=== PATIENT | female | born 1955 | race Caucasian/White ===

== ENCOUNTER 2017-01-19 11:55 | Emergency (ER) | payer BC ==
[2017-01-19] VITALS (8 sets, daily range): BP systolic 85–113; BP diastolic 50–68; PULSE 62–96; RESP 16–18; O2SAT 98–100
--- NOTE | 2017-01-19 12:03 | PD ---
Physical Exam Date Seen by Provider: January 19, 2017 Time Seen by Provider: 11:59 Narrative 61 YOWF WITH ACCIDENTAL OD. 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 NO NAUSEA UPPER ABD PAIN AND SOMULANT. NO VOMITING. NO SI OR HI. MISTAKEN FOR MEDROL. VS NOTED WAITING FOR BED PLACEMENT Data Data Last Documented VS Vital Signs Date Time Temp Pulse Resp B/P Pulse Ox O2 Delivery O2 Flow Rate FiO2 01/19/17 11:58 68 94/62 98 MDM Medical Record Reviewed: Yes Supervised Visit with JUDAH: Elton Munoz January 19, 2017 12:03
[2017-01-19] MEDS ORDERED: SODIUM CHLOR 0.9% 1000 ML INJ 1,000 ML IV ONE (12:18)
--- NOTE | 2017-01-19 12:27 | PD ---
HPI Chief Complaint: OD/ Ingestion Time Seen by Provider: 12:17 Travel History International Travel<30 days: No Contact w/Intl Traveler<30days: No Traveled to known affect area: No History of Present Illness HPI 61-year-old female presents for evaluation of unintentional overdose. At approximately 11 AM this morning she took 5 tablets of her 4 mg Zanaflex. She mistook them for her Medrol pills. She is currently feeling sleepy. She endorses some abdominal pain which she attributes to recent abdominal surgery 2 months ago. Denies nausea, vomiting. She denies any other coingestions. She has no other complaints. She relays a history of stage II colon cancer which was resected 2 months ago, no chemotherapy or radiation required. She is currently on vacation from [place], returning in 2 days. [facility] Past Medical History Tetanus Vaccination: Unknown Social History Alcohol Use: No Tobacco Use: Yes (quit) Substance Use: No Allergies-Medications (Allergen,Severity, Reaction): Coded Allergies: Ampicillin (Verified Allergy, Unknown, 01/19/17) Cipro (Verified Allergy, Unknown, 01/19/17) Codeine (Verified Allergy, Unknown, 01/19/17) Penicillin (Verified Allergy, Unknown, 01/19/17) Reported Meds & Prescriptions Reported Meds & Active Scripts Active Reported Lortab (Hydrocodone-Acetaminophen) 5-325 Mg Tab 1 Tab PO Q6H PRN Flonase Nasal Dawson (Fluticasone Nasal Dawson) 50 Mcg/Act Dawson 2 Dawson EACH NARE DAILY Medrol Dosepak (Methylprednisolone) 4 Mg Dspk 4 Mg PO DIRECTED Per Pharmacist direction Tizanidine (Tizanidine HCl) 4 Mg Tab 4 Mg PO HS Losartan (Losartan Potassium) 50 Mg Tab 50 Mg PO DAILY Review of Systems Except as stated in HPI: all other systems reviewed are Neg Physical Exam Narrative GENERAL: Well-developed well-nourished female who is somnolent on initial examination, arousable to voice and responds to commands. SKIN: Warm and dry. HEAD: Atraumatic. Normocephalic. EYES: Pupils equal and round. No scleral icterus. No injection or drainage. ENT: No nasal bleeding or discharge. Mucous membranes pink and moist. NECK: Trachea midline. No JVD. CARDIOVASCULAR: Regular rate and rhythm. No murmur appreciated. RESPIRATORY: No accessory muscle use. Clear to auscultation. Breath sounds equal bilaterally. GASTROINTESTINAL: Abdomen soft, mild epigastric tenderness without guarding. Well healing Surgical wound noted across the abdomen. MUSCULOSKELETAL: No obvious deformities. No clubbing. No cyanosis. No edema. NEUROLOGICAL: Awake and alert. No obvious cranial nerve deficits. Motor grossly within normal limits. Normal speech. PSYCHIATRIC: Appropriate mood and affect; insight and judgment normal. Data Data Last Documented VS Vital Signs Date Time Temp Pulse Resp B/P Pulse Ox O2 Delivery O2 Flow Rate FiO2 01/19/17 14:00 65 16 97/60 01/19/17 12:50 99 Room Air Orders Electrocardiogram (01/19/17 ) Complete Blood Count With Diff (01/19/17 12:18) Prothrombin Time / Inr (Pt) (01/19/17 12:18) Act Partial Throm Time (Ptt) (01/19/17 12:18) Blood Glucose (01/19/17 12:18) Iv Access Insert/Monitor (01/19/17 12:18) Ecg Monitoring (01/19/17 12:18) Oximetry (01/19/17 12:18) Sodium Chloride 0.9% Flush (Ns Flush) (01/19/17 12:30) Sodium Chlor 0.9% 1000 Ml Inj (Ns 1000 M (01/19/17 12:18) Drug Screen, Random Urine (01/19/17 12:18) Salicylates (Aspirin) (01/19/17 12:18) Lipase (01/19/17 12:25) Sodium Chlor 0.9% 1000 Ml Inj (Ns 1000 M (01/19/17 12:36) Tylenol (Acetaminophen) (01/19/17 12:30) Alcohol (Ethanol) (01/19/17 12:30) Comprehensive Metabolic Panel (01/19/17 12:30) Labs Laboratory Tests Test 01/19/17 01/19/17 12:30 12:50 White Blood Count 7.2 TH/MM3 Red Blood Count 3.72 MIL/MM3 Hemoglobin 8.3 GM/DL Hematocrit 26.3 % Mean Corpuscular Volume 70.8 FL Mean Corpuscular Hemoglobin 22.4 PG Mean Corpuscular Hemoglobin 31.7 % Concent Red Cell Distribution Width 19.9 % Platelet Count 331 TH/MM3 Mean Platelet Volume 7.7 FL Neutrophils (%) (Auto) 43.7 % Lymphocytes (%) (Auto) 44.9 % Monocytes (%) (Auto) 8.7 % Eosinophils (%) (Auto) 1.9 % Basophils (%) (Auto) 0.8 % Neutrophils # (Auto) 3.2 TH/MM3 Lymphocytes # (Auto) 3.2 TH/MM3 Monocytes # (Auto) 0.6 TH/MM3 Eosinophils # (Auto) 0.1 TH/MM3 Basophils # (Auto) 0.1 TH/MM3 CBC Comment DIFF FINAL Differential Comment Prothrombin Time 10.4 SEC Prothromb Time International 0.9 RATIO Ratio Activated Partial 24.0 SEC Thromboplast Time Sodium Level 141 MEQ/L Potassium Level 3.6 MEQ/L Chloride Level 105 MEQ/L Carbon Dioxide Level 29.5 MEQ/L Anion Gap 7 MEQ/L Blood Urea Nitrogen 13 MG/DL Creatinine 0.72 MG/DL Estimat Glomerular Filtration 82 ML/MIN Rate Random Glucose 199 MG/DL Calcium Level 8.4 MG/DL Total Bilirubin 0.1 MG/DL Aspartate Amino Transf 11 U/L (AST/SGOT) Alanine Aminotransferase 20 U/L (ALT/SGPT) Alkaline Phosphatase 82 U/L Total Protein 5.9 GM/DL Albumin 3.2 GM/DL Lipase 219 U/L Salicylates Level LESS THAN 1.7 MG/DL Acetaminophen Level LESS THAN 2.0 MCG/ML Ethyl Alcohol Level LESS THAN 3 MG/DL Urine Opiates Screen NEG Urine Barbiturates Screen NEG Urine Amphetamines Screen NEG Urine Benzodiazepines Screen POS Urine Cocaine Screen NEG Urine Cannabinoids Screen NEG MDM Medical Decision Making Medical Screen Exam Complete: Yes Emergency Medical Condition: Yes Medical Record Reviewed: Yes Interpretation(s) EKG sinus rhythm rate 65 normal intervals Hemoglobin 8.3 Positive for benzodiazepines Differential Diagnosis Zanaflex overdose, hypotension, bradycardia Narrative Course I discussed the case with the [facility] who recommends observing the patient, supportive care, IV fluids. If hypotension and bradycardia worsens injury with dopamine, atropine. Basic lab work, 12-lead EKG, ECG monitoring and ordered. 2 L of IV fluids have been ordered. The patient's lab work has been reviewed. She does have a hemoglobin of 8.3 with no symptoms to suggest acute anemia. Discussed with the patient he will be following up with her primary care physician in [place] when she returns in a few days. 1515: The patient has been reevaluated several times during her hospital stay. Most recently the patient is feeling significantly improved, she is much more awake. She will be provided oral hydration. Her heart rate is in the low 80s and her systolic blood pressure is 113. The patient will be provided a copy of all of her lab work upon discharge. Procedures EKG Prior to Arrival: Yes Diagnosis Primary Impression: Overdose Qualified Code: T50.901A - Overdose, accidental or unintentional, initial encounter Additional Instructions: As discussed, follow-up closely with primary care physician to discuss low hemoglobin level. Return for any emergent medical conditions. Med/Other Pt SpecificInfo: No Change to Meds Disposition: 01 DISCHARGE HOME Condition: Stable Iván Mercado January 19, 2017 12:27 Iván Mercado January 19, 2017 12:27
[2017-01-19] MEDS ORDERED: SODIUM CHLORIDE 0.9% FLUSH 10 ML FLUSH IVF PRN (12:30)
[2017-01-19] MEDS ORDERED: SODIUM CHLOR 0.9% 1000 ML INJ 1,000 ML IV SCH (12:36)
[2017-01-19 12:52] LABS: AUTOMATED NEUTROPHIL # 3.2 TH/MM3 (1.8-7.7); BASOPHIL # 0.1 TH/MM3 (0-0.2); BASOPHIL % 0.8 % (0.0-2.0); EOSINOPHIL # 0.1 TH/MM3 (0-0.4); EOSINOPHIL % 1.9 % (0.0-4.0); HEMATOCRIT 26.3 % (35.0-46.0); HEMO FLAGS DIFF FINAL; LYMPH % 44.9 % (9.0-44.0); LYMPHOCYTE # 3.2 TH/MM3 (1.0-4.8); MEAN CELL VOLUME 70.8 FL (80.0-100.0); MEAN CORPUSCULAR HEMOGLOBIN 22.4 PG (27.0-34.0); MEAN CORPUSCULAR HGB CONC 31.7 % (32.0-36.0); MONO % 8.7 % (0.0-8.0); NEUT % 43.7 % (16.0-70.0); PLATELET COUNT 331 TH/MM3 (150-450); RED BLOOD COUNT 3.72 MIL/MM3 (4.00-5.30); RED CELL DISTRIBUTION WIDTH 19.9 % (11.6-17.2); WHITE BLOOD COUNT 7.2 TH/MM3 (4.0-11.0)
[2017-01-19 12:59] LABS: INTERNATIONAL NORMALIZED RATIO 0.9 RATIO; PROTHROMBIN TIME - PATIENT 10.4 SEC (9.8-11.6)
[2017-01-19 13:13] LABS: ACETAMINOPHEN LESS THAN 2.0 MCG/ML (10.0-30.0); ALT (GPT) 20 U/L (10-53); ANION GAP 7 MEQ/L (5-15); AST (GOT) 11 U/L (15-37); BICARBONATE 29.5 MEQ/L (21.0-32.0); BLOOD UREA NITROGEN 13 MG/DL (7-18); CHLORIDE 105 MEQ/L (98-107); GLOMERULAR FILTRATION RATE 82 ML/MIN (>89); POTASSIUM 3.6 MEQ/L (3.5-5.1); SODIUM (NA) 141 MEQ/L (136-145)
[2017-01-19 13:14] LABS: ALKALINE PHOSPHATASE 82 U/L (45-117); TOTAL BILIRUBIN ADULT 0.1 MG/DL (0.2-1.0)
[2017-01-19 13:38] LABS: AMPHETAMINE, URINE NEG (NEG); BARBITURATES, URINE NEG (NEG); COCAINE, URINE NEG (NEG)
[2017-01-19] MEDS ORDERED: MEDR4PAK PO (14:26)
[2017-01-19] MEDS ORDERED: HYDR-3533 PO (14:26)
[2017-01-19] MEDS ORDERED: LOSA50TA PO (14:26)
[2017-01-19] MEDS ORDERED: TIZA4TAB PO (14:26)
[2017-01-19] MEDS ORDERED: FLUT1SPR5 EACH NARE (14:26)
--- NOTE | 2017-01-20 15:46 | EKG ---
Date Performed: 01/19/2017 Time Performed: 12:23:01 PTAGE: 61 years EKG: Sinus rhythm NORMAL ECG NO PREVIOUS TRACING DOCTOR: Laisha Shah Interpretating Date/Time 01/20/2017 15:44:54
== END 2017-01-19 15:50 | disposition home or self-care (01) ==
LOC: NEPC 11:55
DX: T42.8X1A Poisoning by antiparkinsonism drugs and other central muscle-tone depressants, accidental (unintentional), initial encounter (principal); R10.9 Unspecified abdominal pain; R00.1 Bradycardia, unspecified; X58.XXXA Exposure to other specified factors, initial encounter
CPT/HCPCS: 80053; 80307; 83690; 85025; 85610; 85730; 93005; 96360; 96361; 99284; J7030